=== PATIENT | male | born 1970 | race Caucasian/White ===

== ENCOUNTER 2016-11-07 16:05 | Inpatient (IN) | payer SELFPAY ==
[2016-11-07] VITALS (9 sets, daily range): BP systolic 126–202; BP diastolic 75–118; PULSE 66–120; RESP 16–22; TEMP 98.5; O2SAT 95–100
[~2016-11-07] VITALS: Ht 167.6 cm; Wt 79.4 kg
[~2016-11-07 16:05] MED LIST: CYCL-36 PO; IBUP-232 PO; LISI-357 PO
[2016-11-07] MEDS ORDERED: LISI-519 PO (16:10)
[2016-11-07] MEDS ORDERED: hydrALAZINE HCL 20 MG/ML VIAL IV PUSH ONE (16:30)
[2016-11-07] MEDS ORDERED: SODIUM CHLOR 0.9% 1000 ML INJ 1,000 ML IV ONE (16:30)
[2016-11-07] MEDS ORDERED: ONDANSETRON HCL 4 MG/2 ML VIAL IV PUSH ONE (16:30)
--- NOTE | 2016-11-07 16:37 | PD ---
HPI Chief Complaint: Headache Time Seen by Provider: 16:20 Travel History International Travel<30 days: No Contact w/Intl Traveler<30days: No Traveled to known affect area: No History of Present Illness HPI 46yo M with PMH of HTN and migraine headaches presents to the ED with c/o daily headache since 10/27/16. Pt states he has been having migraine headache since he was 14 and usually resolves with exedrin. States he had a very bad migraine on 10/27/16 and after that, has been having daily headaches like his migraine. Pt states right now it is about 4 out of 10 on 10 pain scale. Pain is right sided, throbbing and associated with nausea, vomiting. Pt started feeling tingling on his left face when he woke up at 10am this morning. States he has had this before once but usually do not have this associated with his usual migraines. Pt states he has elevated blood pressure but has not been able to take his lisinopril for at least 4 days because of the vomiting. Denies any fever, cough, chest pain, sob, abdominal pain, focal weakness or numbness in extremities. PFSH Past Medical History Hx Anticoagulant Therapy: No Bipolar Disorder: Yes Cardiovascular Problems: Yes (HTN) COPD: Yes Diminished Hearing: No Hypertension: Yes Musculoskeletal: Yes (CHRONIC LOWER BACK PAIN) Psychiatric: Yes Migraines: Yes Influenza Vaccination: No Past Surgical History Appendectomy: Yes Social History Alcohol Use: No (former "alcoholic") Tobacco Use: Yes (1.5ppd) Substance Use: No (DENIES) Allergies-Medications (Allergen,Severity, Reaction): Coded Allergies: Prednisone (Verified Allergy, Severe, Swelling, 11/07/16) Vioxx (Verified Allergy, Severe, edema, 11/07/16) Codeine (Verified Allergy, Mild, FACE SWELLS, 11/07/16) Reported Meds & Prescriptions Reported Meds & Active Scripts Active Reported Lisinopril 5 Mg Tab 5 Mg PO DAILY Review of Systems Except as stated in HPI: all other systems reviewed are Neg Physical Exam Narrative GENERAL: 46yo M in mild distress. SKIN: Warm and dry. HEAD: Atraumatic. Normocephalic. EYES: Pupils equal and round at 4mm bilaterally. EOMI. No scleral icterus. No injection or drainage. ENT: Throat: Clear. TM wnl bilaterally. NECK: Trachea midline. No JVD. No nuchal rigidity. CARDIOVASCULAR: Regular rate and rhythm. No murmur appreciated. RESPIRATORY: No accessory muscle use. Clear to auscultation. Breath sounds equal bilaterally. GASTROINTESTINAL: Abdomen soft, non-tender, nondistended. No rebound tenderness or guarding. MUSCULOSKELETAL: No obvious deformities. No clubbing. No cyanosis. No edema. NEUROLOGICAL: Awake and alert. Decreased sensation in left V2, V3. NIH Stroke scale 1. Muscle strength 5/5 in all extremities. Sensation intact in all extremities. PSYCHIATRIC: Appropriate mood and affect; insight and judgment normal. Data Data Last Documented VS Vital Signs Date Time Temp Pulse Resp B/P Pulse Ox O2 Delivery O2 Flow Rate FiO2 11/07/16 18:53 120 22 126/89 98 11/07/16 16:[address] Brain W/O Iv Contrast(Rout) (11/07/16 ) Hydralazine Inj (Apresoline Inj) (11/07/16 16:30) Complete Blood Count With Diff (11/07/16 16:29) Basic Metabolic Panel (Bmp) (11/07/16 16:29) Prothrombin Time / Inr (Pt) (11/07/16 16:29) Act Partial Throm Time (Ptt) (11/07/16 16:29) Ondansetron Inj (Zofran Inj) (11/07/16 16:30) Sodium Chlor 0.9% 1000 Ml Inj (Ns 1000 M (11/07/16 16:30) Morphine Inj (Morphine Inj) (11/07/16 18:45) Aspirin (Aspirin) (11/07/16 18:45) Consult Neurology (11/07/16 ) Admit Order (Ed Use Only) (11/07/16 19:05) Labs Laboratory Tests Test 11/07/16 16:45 White Blood Count 6.6 TH/MM3 Red Blood Count 3.91 MIL/MM3 Hemoglobin 13.5 GM/DL Hematocrit 39.6 % Mean Corpuscular Volume 101.3 FL Mean Corpuscular Hemoglobin 34.6 PG Mean Corpuscular Hemoglobin 34.2 % Concent Red Cell Distribution Width 12.6 % Platelet Count 380 TH/MM3 Mean Platelet Volume 7.5 FL Neutrophils (%) (Auto) 70.3 % Lymphocytes (%) (Auto) 22.4 % Monocytes (%) (Auto) 5.8 % Eosinophils (%) (Auto) 0.9 % Basophils (%) (Auto) 0.6 % Neutrophils # (Auto) 4.6 TH/MM3 Lymphocytes # (Auto) 1.5 TH/MM3 Monocytes # (Auto) 0.4 TH/MM3 Eosinophils # (Auto) 0.1 TH/MM3 Basophils # (Auto) 0.0 TH/MM3 CBC Comment DIFF FINAL Differential Comment Prothrombin Time 10.0 SEC Prothromb Time International 0.9 RATIO Ratio Activated Partial 25.7 SEC Thromboplast Time Sodium Level 142 MEQ/L Potassium Level 3.9 MEQ/L Chloride Level 105 MEQ/L Carbon Dioxide Level 28.8 MEQ/L Anion Gap 8 MEQ/L Blood Urea Nitrogen 14 MG/DL Creatinine 0.82 MG/DL Estimat Glomerular Filtration 102 ML/MIN Rate Random Glucose 107 MG/DL Hemoglobin A1c 5.4 % Calcium Level 8.5 MG/DL MDM Medical Decision Making Medical Screen Exam Complete: Yes Emergency Medical Condition: Yes Interpretation(s) Laboratory Tests Test 11/07/16 16:45 White Blood Count 6.6 TH/MM3 (4.0-11.0) Red Blood Count 3.91 MIL/MM3 (4.50-5.90) Hemoglobin 13.5 GM/DL (13.0-17.0) Hematocrit 39.6 % (39.0-51.0) Mean Corpuscular Volume 101.3 FL (80.0-100.0) Mean Corpuscular Hemoglobin 34.6 PG (27.0-34.0) Mean Corpuscular Hemoglobin 34.2 % Concent (32.0-36.0) Red Cell Distribution Width 12.6 % (11.6-17.2) Platelet Count 380 TH/MM3 (150-450) Mean Platelet Volume 7.5 FL (7.0-11.0) Neutrophils (%) (Auto) 70.3 % (16.0-70.0) Lymphocytes (%) (Auto) 22.4 % (9.0-44.0) Monocytes (%) (Auto) 5.8 % (0.0-8.0) Eosinophils (%) (Auto) 0.9 % (0.0-4.0) Basophils (%) (Auto) 0.6 % (0.0-2.0) Neutrophils # (Auto) 4.6 TH/MM3 (1.8-7.7) Lymphocytes # (Auto) 1.5 TH/MM3 (1.0-4.8) Monocytes # (Auto) 0.4 TH/MM3 (0-0.9) Eosinophils # (Auto) 0.1 TH/MM3 (0-0.4) Basophils # (Auto) 0.0 TH/MM3 (0-0.2) CBC Comment DIFF FINAL Differential Comment Prothrombin Time 10.0 SEC (9.8-11.6) Prothromb Time International 0.9 RATIO Ratio Activated Partial 25.7 SEC Thromboplast Time (24.3-30.1) Sodium Level 142 MEQ/L (136-145) Potassium Level 3.9 MEQ/L (3.5-5.1) Chloride Level 105 MEQ/L (98-107) Carbon Dioxide Level 28.8 MEQ/L (21.0-32.0) Anion Gap 8 MEQ/L (5-15) Blood Urea Nitrogen 14 MG/DL (7-18) Creatinine 0.82 MG/DL (0.60-1.30) Estimat Glomerular Filtration 102 ML/MIN Rate (>89) Random Glucose 107 MG/DL (74-106) Calcium Level 8.5 MG/DL (8.5-10.1) Last Impressions Head CT 11/07/16 0000 Signed Impressions: Service Date/Time: Monday, November 07, 2016 16:39 - CONCLUSION: Small probably evolving right basal ganglia lacunar infarct. Bassem Gustafson MD Differential Diagnosis Migraine headache vs. hypertensive emergency vs. CVA Narrative Course 46yo M with PMH of migraine headache here with right sided headache. Feels like his migraine and associated with NBNB vomiting. However, he started having left facial tingling when he woke up at 10am today. States he has had this once before with his headache but usually do not have this with his headache. BP is 202/118 and pt states he has not been taking his lisinopril because of the vomiting. Pt given hydralazine 10mg IV and BP is now 186/101. Labs reviewed, no leukocytosis. BMP unremarkable. CT brain showed a small probably evolving right basal ganglia lacunar infarct. Pt given aspirin 325mg PO. Pt also given morphine for pain. States it resolved his headache for a bit but now it is coming back. Pt to be admitted for CVA work up. Discussed with Dr. Pike and accepted to her service. Neuro consult placed. Diagnosis Primary Impression: CVA (cerebral vascular accident) Qualified Code: I63.9 - Cerebrovascular accident (CVA), unspecified mechanism Admitting Information Admitting Physician Requests: Observation Rose Fried DO Nov 07, 2016 16:37
--- NOTE | 2016-11-07 16:55 | RADHPO ---
EXAM DATE/TIME: 11/07/2016 16:39 [facility] COMPARISON: No previous studies available for comparison. INDICATIONS : Cephalgia with nausea and vomiting. RADIATION DOSE: 67.49 CTDIvol (mGy) MEDICAL HISTORY : Hypertension. SURGICAL HISTORY : None. ENCOUNTER: Initial ACUITY: 1 day PAIN SCALE: 5/10 LOCATION: cranial TECHNIQUE: Multiple contiguous axial images were obtained of the head. Using automated exposure control and adj ustment of the mA and/or kV according to patient size, radiation dose was kept as low as reasonably a chievable to obtain optimal diagnostic quality images. FINDINGS: There is a small area of diminished density in the right lentiform nucleus which is likely an evolvin g lacunar infarct. The brain is also poor symmetric and normal. There is no evidence of mass or hemor rhage. The extracranial structures are benign and intact. CONCLUSION: Small probably evolving right basal ganglia lacunar infarct. Bassem Gustafson MD on November 07, 2016 at 16:51 Board Certified Radiologist. This report was verified electronically.
[2016-11-07 16:58] LABS: AUTOMATED NEUTROPHIL # 4.6 TH/MM3 (1.8-7.7); BASOPHIL % 0.6 % (0.0-2.0); EOSINOPHIL # 0.1 TH/MM3 (0-0.4); EOSINOPHIL % 0.9 % (0.0-4.0); HEMATOCRIT 39.6 % (39.0-51.0); HEMO FLAGS DIFF FINAL; LYMPH % 22.4 % (9.0-44.0); LYMPHOCYTE # 1.5 TH/MM3 (1.0-4.8); MEAN CELL VOLUME 101.3 FL (80.0-100.0); MEAN CORPUSCULAR HEMOGLOBIN 34.6 PG (27.0-34.0); MEAN CORPUSCULAR HGB CONC 34.2 % (32.0-36.0); MONO % 5.8 % (0.0-8.0); NEUT % 70.3 % (16.0-70.0); PLATELET COUNT 380 TH/MM3 (150-450); RED BLOOD COUNT 3.91 MIL/MM3 (4.50-5.90); RED CELL DISTRIBUTION WIDTH 12.6 % (11.6-17.2); WHITE BLOOD COUNT 6.6 TH/MM3 (4.0-11.0)
[2016-11-07 17:05] LABS: POTASSIUM 3.9 MEQ/L (3.5-5.1)
[2016-11-07 17:08] LABS: BICARBONATE 28.8 MEQ/L (21.0-32.0)
[2016-11-07 17:09] LABS: APTT (PATIENT) 25.7 SEC (24.3-30.1); INTERNATIONAL NORMALIZED RATIO 0.9 RATIO
[2016-11-07] MEDS ORDERED: MORPHINE SULFATE 4 MG/ML INJ IV PUSH ONE ×2 (18:45→20:30)
[2016-11-07] MEDS ORDERED: ASPIRIN 325 MG TAB PO ONE (18:45)
[2016-11-07] MEDS ORDERED: SODIUM CHLORIDE 0.9% FLUSH 10 ML FLUSH IV FLUSH PRN (19:45)
[2016-11-07] MEDS ORDERED: MORPHINE SULFATE 4 MG/ML INJ IV PUSH PRN (20:45)
[2016-11-07] MEDS: SODIUM CHLORIDE 0.9% FLUSH 10 ML FLUSH IV FLUSH SCH (21:00)
[2016-11-07 22:12] LABS: HEMOGLOBIN A1a 1.3 %; HEMOGLOBIN A1b 0.8 %; HEMOGLOBIN Ao 85.2 %; HEMOGLOBIN F 0.9 %; HEMOGLOBIN LA1C 2.1 %
[2016-11-08] VITALS (13 sets, daily range): BP systolic 160–188; BP diastolic 77–100; PULSE 58–86; RESP 15–20; TEMP 96.5–98.1; O2SAT 94–99
[2016-11-08] MEDS ORDERED: MORPHINE SULFATE 4 MG/ML INJ IV PUSH PRN ×3 (00:43→10:15)
[2016-11-08] MEDS ORDERED: MORPHINE SULFATE 4 MG/ML INJ IV PUSH ONE (00:45)
[2016-11-08] MEDS: ONDANSETRON HCL 4 MG/2 ML VIAL IV PUSH PRN ×2 (00:54→11:16)
[2016-11-08] MEDS ORDERED: SODIUM CHLORIDE 0.9% FLUSH 10 ML FLUSH IVF PRN (08:15)
[2016-11-08] MEDS ORDERED: ENALAPRILAT 1.25 MG/ML VIAL IV PRN (08:15)
[2016-11-08] MEDS ORDERED: LABETALOL HCL 100 MG/20 ML VIAL IV PRN (08:15)
[2016-11-08] MEDS: SODIUM CHLORIDE 0.9% FLUSH 10 ML FLUSH IV FLUSH SCH ×2 (09:00→21:32)
[2016-11-08 09:50] LABS: HDL CHOLESTEROL 40.9 MG/DL (40.0-60.0)
--- NOTE | 2016-11-08 10:10 | HHI.HP ---
HPI Service [facility] Hospitalists Primary Care Physician No Primary Care Physician Admission Diagnosis CVA Diagnoses: Chief Complaint: Severe headache Blurry vision Tingling left side of face Travel History International Travel<30 Days: No Contact w/Intl Traveler <30 Da: No Traveled to Known Affected Are: No History of Present Illness This is a 46-year-old male with past medical history significant for hypertension, COPD, chronic bronchitis, depression, bipolar disorder and history of alcohol abuse who presents to [facility] complaints of severe headache ongoing since 10/27/16 and tingling left side of his face 1 day. Patient has a long history of migraines beginning at the age of 14. As a result of the migraine, patient started experiencing nausea and vomiting and has been unable to take his Lisinopril medication. As a result his blood pressure has been uncontrolled. He denies any recent illness. He denies any fever or chills but did say he had a brief episode of "clamminess" over history on but this is since resolved. He does report some associated blurry vision and states he's unable to focus. He denies any complaints of dizziness or lightheadedness. He denies any chest pain, shortness of breath, abdominal pain , numbness or tingling or focal weakness. He continues to have a headache 6 out of 10 on the pain scale. He smokes a pack to pack and half cigarettes a day. He has a previous history of alcohol abuse but has been sober since March of last year. In the ED, patient's CT revealed a small probably evolving right basal ganglia lacunar infarct. Patient will be admitted at this time. Review of Systems Constitutional: DENIES: Fever, Dizziness Endocrine: DENIES: Polyuria, Polyphagia 10 point review of systems completed and all pertinent negative except as stated in history of present illness Past Family Social History Past Medical History Migraines since the age of 14 COPD Chronic bronchitis Hypertension Bipolar disorder Depression Chronic low back pain Past Surgical History Appendectomy Reported Medications Lisinopril 5 Mg Tab 5 Mg PO DAILY Allergies: Coded Allergies: Prednisone (Verified Allergy, Severe, Swelling, 11/07/16) Vioxx (Verified Allergy, Severe, edema, 11/07/16) Codeine (Verified Allergy, Mild, FACE SWELLS, 11/07/16) Active Ordered Medications Current Medications Medications (Trade) Dose Ordered Sig/Leslee Route Start Time Stop Time Status Last Admin (NS Flush) 2 ml BID IV FLUSH 11/07/16 21:00 11/07/16 21:00 (NS Flush) 2 ml UNSCH PRN IV FLUSH 11/07/16 19:45 (Lovenox Inj) 40 mg Q24H SQ 11/08/16 09:00 (Zofran Inj) 4 mg Q6H PRN IV PUSH 11/08/16 00:45 11/08/16 00:54 (Morphine Inj) 2 mg Q4HR PRN IV PUSH 11/08/16 06:15 11/08/16 07:54 (NS Flush) 2 ml UNSCH PRN IVF 11/08/16 08:15 (Vasotec Inj) 1.25 mg Q4H PRN IV 11/08/16 08:15 (Trandate Inj) 10 mg Q2H PRN IV 11/08/16 08:15 (Lipitor) 10 mg HS PO 11/08/16 21:00 (Aspirin) 325 mg DAILY PO 11/08/16 09:00 Family History Mother, hypertension Migraine Social History Patient is a smoker and reports smoking a 1 - 1 1/2 packs per day. He is recovering alcoholic and is not had a drink since March 2016. He denies any illicit drug use. 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 Physical Exam Vital Signs Vital Signs Date Time Temp Pulse Resp B/P Pulse Ox O2 Delivery O2 Flow Rate FiO2 11/08/16 08:50 65 16 161/82 97 Room Air 11/08/16 08:08 16 11/08/16 07:53 16 11/08/16 07:30 79 16 99 Room Air 21 11/08/16 07:30 98.1 79 16 188/96 99 Room Air 11/08/16 05:07 86 20 188/100 98 11/08/16 03:00 58 20 184/93 98 11/08/16 01:49 58 20 179/84 97 11/08/16 01:11 98 21 11/08/16 00:17 70 20 160/77 98 11/07/16 22:19 66 20 165/86 96 11/07/16 21:02 79 20 153/75 95 11/07/16 20:22 69 20 169/94 96 11/07/16 19:52 76 20 190/98 96 11/07/16 19:52 78 20 97 11/07/16 19:15 20 11/07/16 18:53 120 22 126/89 98 11/07/16 18:02 82 20 186/101 98 11/07/16 17:15 78 20 190/90 98 11/07/16 16:58 73 20 201/103 99 11/07/16 16:08 98.5 93 16 202/118 100 Physical Exam GENERAL: This is a well-nourished, well-developed patient, in no apparent distress. A&Ox3. Pleasant and cooperative. SKIN: No rashes, ecchymoses or lesions. Warm and dry. HEAD: Atraumatic. Normocephalic. No temporal or scalp tenderness. EYES: Pupils equal round and reactive. Extraocular motions intact. No scleral icterus. No injection or drainage. ENT: Nose without bleeding, purulent drainage or septal hematoma. Throat without erythema, tonsillar hypertrophy or exudate. Uvula midline. Airway patent. NECK: Trachea midline. No JVD or lymphadenopathy. Supple, nontender, no meningeal signs. CARDIOVASCULAR: Regular rate and rhythm without murmurs, gallops, or rubs. RESPIRATORY: Clear to auscultation. Breath sounds equal bilaterally. No wheezes , rales, or rhonchi. GASTROINTESTINAL: Abdomen soft, non-tender, nondistended. No hepato-splenomegaly , or palpable masses. No guarding. MUSCULOSKELETAL: Extremities without clubbing, cyanosis, or edema. No joint tenderness, effusion, or edema noted. No calf tenderness. Negative Homans sign bilaterally. NEUROLOGICAL: Awake and alert. Face is symmetrical and no evidence of droop. Cranial nerves II through XII intact except for some subjective numbness noted on the left-sided face. Motor and sensory grossly within normal limits. Five out of 5 muscle strength in all muscle groups. Normal speech. Laboratory Laboratory Tests Test 11/07/16 11/08/16 16:45 06:05 White Blood Count 6.6 Red Blood Count 3.91 Hemoglobin 13.5 Hematocrit 39.6 Mean Corpuscular Volume 101.3 Mean Corpuscular Hemoglobin 34.6 Mean Corpuscular Hemoglobin 34.2 Concent Red Cell Distribution Width 12.6 Platelet Count 380 Mean Platelet Volume 7.5 Neutrophils (%) (Auto) 70.3 Lymphocytes (%) (Auto) 22.4 Monocytes (%) (Auto) 5.8 Eosinophils (%) (Auto) 0.9 Basophils (%) (Auto) 0.6 Neutrophils # (Auto) 4.6 Lymphocytes # (Auto) 1.5 Monocytes # (Auto) 0.4 Eosinophils # (Auto) 0.1 Basophils # (Auto) 0.0 CBC Comment DIFF FINAL Differential Comment Prothrombin Time 10.0 Prothromb Time International 0.9 Ratio Activated Partial 25.7 Thromboplast Time Sodium Level 142 Potassium Level 3.9 Chloride Level 105 Carbon Dioxide Level 28.8 Anion Gap 8 Blood Urea Nitrogen 14 Creatinine 0.82 Estimat Glomerular Filtration 102 Rate Random Glucose 107 Hemoglobin A1c 5.4 Calcium Level 8.5 Triglycerides Level 241 Cholesterol Level 181 LDL Cholesterol 92 HDL Cholesterol 40.9 Cholesterol/HDL Ratio 4.42 Thyroid Stimulating Hormone 1.190 3rd Gen Result Diagram: 11/07/16 1645 11/07/16 1645 Imaging Last [address] 11/07/16 0000 Signed Impressions: Service Date/Time: Monday, November 07, 2016 16:39 - CONCLUSION: Small probably evolving right basal ganglia lacunar infarct. Bassem Gustafson MD Assessment and Plan Assessment and Plan 46-year-old male with past medical history significant for hypertension, COPD, chronic bronchitis, depression, bipolar disorder and history of alcohol abuse who presents to [facility] complaints of severe headache ongoing since 10/27 and tingling left side of his face 1 day. CVA in patient with hypertensive urgency at admission with a BP of 202/118 unable take his hypertensive medication 3 days due to N/V and a history of ongoing tobacco use - Admit to inpatient - Consult neurology - MRI and MRA of the head - Echocardiogram - Carotid Doppler studies - Atorvastatin and aspirin daily - Obtain TSH level, lipid panel and A1c - PT/OT/ST to include swallow evaluation - Allow permissive hypertension - Labetalol with parameters - Discussed importance of smoking cessation. Nicotine patch offered but declined due to poor tolerance in the past. - Monitor for arrhythmia with telemetry - Neurochecks Hypertension with hypertensive urgency at presentation - As above, allow permissive hypertension - Labetalol with parameters BP >220/120 - Monitor BP Migraine - Patient has a lengthy history as migraine sufferer since age 14 - Still complaining of severe headache - Increased dose of morphine and monitor response COPD/chronic bronchitis with ongoing tobacco use - Smoking cessation advised - DuoNeb nebs when necessary DVT prophylaxis - Lovenox subcutaneous Written by Shira Rousseau, acting as scribe for Dr. Fry on 11/08/16 at 10 :07. All or portions of this note were transcribed by rosalba Rousseau PA-C. I, Dr. Vladislav Fry personally performed the history, physical exam, and medical decision making; and confirmed the accuracy of the information in the transcribed note. Authenticated by Dr. Vladislav Fry on 11/08/16 at 16:35. Physician Certification 2 Midnight Certification Type: Admission for Inpatient Services Order for Inpatient Services The services are ordered in accordance with Medicare regulations or non- Medicare payer requirements, as applicable. In the case of services not specified as inpatient-only, they are appropriately provided as inpatient services in accordance with the 2-midnight benchmark. Estimated LOS (days): 2 days is the estimated time the patient will need to remain in the hospital, assuming treatment plan goals are met and no additional complications. Post-Hospital Plan: Home Shira Rousseau Nov 08, 2016 10:10 Vladislav Fry MD Nov 08, 2016 16:35
[2016-11-08] MEDS: ASPIRIN 325 MG TAB PO SCH (10:30)
[2016-11-08] MEDS: ENOXAPARIN SODIUM 40 MG/0.4 ML SYRINGE SQ SCH (10:31)
--- NOTE | 2016-11-08 10:47 | RADHPO ---
EXAM DATE/TIME: 11/08/2016 09:24 [facility] COMPARISON: No previous studies available for comparison. INDICATIONS : Headache. Cerebrovascular accident. Left facial tingling. MEDICAL HISTORY : Hypertension. Chronic obstructive pulmonary disease. Bipolar. SURGICAL HISTORY : Appendectomy. ENCOUNTER: Initial ACUITY: 2 weeks PAIN SCORE: 8/10 LOCATION: Bilateral neck PEAK SYSTOLIC VELOCITIES (cm/sec): ICA/CCA RATIO: Right: 0.7 Left: 0.8 ICA: Right: 83 Left: 113 CCA: Right: 111 Left: 141 ECA: Right: 74 Left: 100 VERTEBRAL: Right: 70 antegrade Left: 68 antegrade Elevated flow velocities and ICA/CCA ratios have been found to correlate with increased degrees of vessel stenosis, calculated as percentage of diameter relative to a normal segment of distal ICA/CCA FINDINGS: RIGHT CAROTID: No significant stenosis is visualized. The waveforms are within normal limits. LEFT CAROTID: No significant stenosis is visualized. The waveforms are within normal limits. VERTEBRAL ARTERIES: Antegrade flow is seen in both vertebral arteries. MISCELLANEOUS: None. CONCLUSION: Negative exam. Christiano Coker MD on November 08, 2016 at 10:43 Board Certified Radiologist. This report was verified electronically.
[2016-11-08] MEDS ORDERED: NALOXONE HCL 0.4 MG/ML AMP IV PRN (11:30)
[2016-11-08] MEDS: HYDROmorphone HCL PF 1 MG/ML VIAL IV PRN ×2 (14:11→21:33)
--- NOTE | 2016-11-08 15:17 | RADHPO ---
EXAM DATE/TIME: 11/08/2016 14:20 [facility] COMPARISON: No previous studies available for comparison. INDICATIONS : Stroke. MEDICAL HISTORY : Hypertension. SURGICAL HISTORY : Appendectomy. ENCOUNTER: Subsequent ACUITY: 2 day PAIN SCORE: 5/10 LOCATION: cranial TECHNIQUE: Multiplanar, multisequence MRI of the brain was performed without contrast. FINDINGS: CEREBRUM: The ventricles are normal for age. No evidence of midline shift, mass lesion, hemorrha ge or acute infarction. There is a focal signal abnormality within the right putamen/anterior limb o f the right internal capsule consistent with possible old lacunar infarct. No extraaxial fluid collec tions are seen. The pituitary gland and suprasellar cistern are normal in configuration. WHITE MATTER: Minimal scattered periventricular white matter signal abnormalities are noted consi stent with minimal demyelination or small vessel ischemic disease. POSTERIOR FOSSA: The cerebellum and brainstem are intact. The 4th ventricle is midline. The cere bellopontine angle is unremarkable. The cerebellar tonsils are normal in position. DIFFUSION IMAGING: No focal areas of restricted diffusion are seen. No evidence of acute infarct ion. EXTRACRANIAL: The visualized portions of the orbits and paranasal sinuses are unremarkable. CONCLUSION: 1. Minimal scattered periventricular white matter signal abnormalities consistent with minimal demyel ination or small vessel ischemic disease. 2. Focal signal abnormality within the right putamen/anterior limb of the right internal capsule cons istent with possible old lacunar infarct. 3. No acute infarct, hemorrhage, mass effect or extra-axial fluid collections. Heladio Peña MD on November 08, 2016 at 15:12 Board Certified Radiologist. This report was verified electronically.
--- NOTE | 2016-11-08 15:55 | RADHPO ---
EXAM DATE/TIME: 11/08/2016 14:20 [facility] COMPARISON: No previous studies available for comparison. INDICATIONS : Stroke. MEDICAL HISTORY : Hypertension. SURGICAL HISTORY : Appendectomy. Left leg. ENCOUNTER: Subsequent ACUITY: 2 day PAIN SCORE: 5/10 LOCATION: cranial Please note a normal MRA of the brain does not entirely exclude the possibility of a small aneurysm, nor the possibility of distal intracranial vessel disease. TECHNIQUE: 3D time of flight MRA was performed. Source images, multiplanar STS MIP, and 3D volume MIP reconstru ctions were reviewed. FINDINGS: There is excellent visualization of the major intracranial arteries out to the second-order branch ve ssels. There is no evidence for aneurysm, vessel truncation or stenosis, and no evidence for vascula r malformation. Patent posterior communicating arteries are noted bilaterally. CONCLUSION: No significant stenosis, occlusion or aneurysm formation. Patent bilateral posterior communicating arteries. Heladio Peña MD on November 08, 2016 at 15:52 Board Certified Radiologist. This report was verified electronically.
--- NOTE | 2016-11-08 19:01 | EC ---
Study Study Date:11/08/2016 STUDY CONCLUSIONS SUMMARY LEFT VENTRICLE: The cavity size was normal. Wall thickness was increased in a pattern of mild LVH. There was concentric hypertrophy. Systolic function was normal. The estimated ejection fraction was in the range of 60% to 65%. Wall motion was normal; there were no regional wall motion abnormalities. Doppler parameters are consistent with abnormal left ventricular relaxation (grade 1 diastolic dysfunction). If LV function is below 40, please consider prescribing an ACEI or ARB or document rationale for non-use. PROCEDURE DATA STUDY STATUS: Elective. Procedure: Transthoracic echocardiography. Image quality was good. Scanning was performed from the parasternal, apical, and subcostal acoustic windows. Study completion: The patient tolerated the procedure well. Transthoracic echocardiography. M-mode, complete 2D, complete spectral Doppler, and color Doppler. Height: Height: 66in. Weight: Weight: 174.6lb. Body mass index: BMI: 28.2kg/m^2. Body surface area: BSA: 1.89m^2. Patient status: Inpatient. CARDIAC ANATOMY LEFT VENTRICLE: The cavity size was normal. Wall thickness was increased in a pattern of mild LVH. There was concentric hypertrophy. Systolic function was normal. The estimated ejection fraction was in the range of 60% to 65%. Wall motion was normal; there were no regional wall motion abnormalities. Doppler parameters are consistent with abnormal left ventricular relaxation (grade 1 diastolic dysfunction). AORTIC VALVE: The valve appears to be grossly normal. Bjaflet. Doppler: There was no stenosis. No significant regurgitation. Valve area: 2.26cm^2(VTI). Indexed valve area: 1.2cm^2/m^2 (VTI). Valve area: 2.04cm^2 (Vmax). Indexed valve area: 1.08cm^2/m^2 (Vmax). Mean gradient: 5mm Hg (S). MITRAL VALVE: The valve appears to be grossly normal. Doppler: There was no evidence for stenosis. Trace regurgitation. LEFT ATRIUM: The atrium was normal in size. ATRIAL SEPTUM: No PFO/ASD noted. RIGHT VENTRICLE: The cavity size was normal. Systolic function was normal. PULMONIC VALVE: Not well visualized. Doppler: There was no evidence for stenosis. Trace regurgitation. TRICUSPID VALVE: The valve appears to be grossly normal. Doppler: There was no evidence for stenosis. Trace regurgitation. PERICARDIUM: There was no pericardial effusion. Patient weight: 174.6lb _Ejection fraction:_ 65-75% _Fractional shortening:_ 32% up to 5Kg 5-11.5Kg 11.6-22.9Kg 23-45Kg 45-57Kg Aortic Root 7-13 <17 13-22 17-27 17-27 LA diam 6-13 <23 24-38 33-47 37-40 RVID 10-17 7-15 7-15 7-18 8-17 LVIDd 12-22 <32 24-38 33-47 37-40 LVPW 2-4 3-6 5-7 6-8 7-8 IVS 2-4 3-6 5-7 6-8 7-8 BASIC MEASUREMENTS ADULT NORMAL Left ventricle LV internal dimension, ED, chordal *53.1 mm 43-52 level, PLAX LV internal dimension, ES, chordal 33.5 mm 23-38 level, PLAX Fractional shortening, chordal level, 37 % >29 PLAX LV posterior wall thickness, ED 11.6 mm IVS/LVPW ratio, ED 1 <1.3 Ventricular septum Septal thickness, ED 11.6 mm Aortic valve Leaflet separation 19 mm 15-26 Aorta Root diameter, ED 29 mm Left atrium Anterior-posterior dimension 28 mm Anterior-posterior dimension index 1.48 cm/m^2 <2.2 BASIC MEASUREMENTS ADULT NORMAL Aortic valve Leaflet separation 19 mm 15-26 DOPPLER MEASUREMENTS ADULT NORMAL Main pulmonary artery Pressure, S 22 mm Hg =30 Aortic valve Peak velocity, S 154 cm/s Mean velocity, S 106 cm/s VTI, S 27.8 cm Mean gradient, S 5 mm Hg Valve area, VTI 2.26 cm^2 Valve area index, VTI 1.2 cm^2/m^2 Valve area, Vmax 2.04 cm^2 Valve area index, Vmax 1.08 cm^2/m^2 Mitral valve Peak E-wave velocity 68.1 cm/s Peak A-wave velocity 87.4 cm/s Deceleration time *275 ms 150-230 Peak E/A ratio 0.8 Tricuspid valve Regurgitant peak velocity 220 cm/s Peak RV-RA gradient, S 19 mm Hg Maximal regurgitant velocity 220 cm/s Systemic veins Estimated CVP 5 mm Hg Right ventricle RV pressure, S 24 mm Hg <30 Pulmonic valve Peak velocity, S 61.7 cm/s LEGEND: Mean values are shown as u=mean value. Asterisk (*) sandhu values outside specified normal range. Prepared and signed by Julio Fernandez [id number]
[2016-11-08] MEDS ORDERED: ATORVASTATIN 10 MG TAB PO SCH (21:00)
[2016-11-09] VITALS: BP 169/95; PULSE 72; RESP 18; TEMP 98.6; O2SAT 97
[2016-11-09] MEDS: HYDROmorphone HCL PF 1 MG/ML VIAL IV PRN ×2 (00:46→09:05)
[2016-11-09 04:00] VITALS: BP 177/93; PULSE 70; RESP 18; TEMP 97.5; O2SAT 96
[2016-11-09 08:00] VITALS: BP 168/95; PULSE 87; RESP 16; TEMP 97.3; O2SAT 95
[2016-11-09 08:06] LABS: POTASSIUM 3.8 MEQ/L (3.5-5.1)
[2016-11-09 08:09] LABS: BICARBONATE 29.5 MEQ/L (21.0-32.0)
[2016-11-09 08:43] LABS: CREATINE KINASE 44 U/L (39-308)
[2016-11-09] MEDS: SODIUM CHLORIDE 0.9% FLUSH 10 ML FLUSH IV FLUSH SCH (09:00)
[2016-11-09] MEDS: ASPIRIN 325 MG TAB PO SCH (09:04)
[2016-11-09] MEDS: ENOXAPARIN SODIUM 40 MG/0.4 ML SYRINGE SQ SCH (09:04)
--- NOTE | 2016-11-09 10:32 | MB ---
cc: GUERO BEDOYA MD DATE OF CONSULTATION 11/09/2016 REASON FOR CONSULTATION Possible stroke HISTORY OF PRESENT ILLNESS Mr. Harrison is a 46-year-old male who presented to the [facility] because of severe headache and tingling of the last left side of the face. The patient has significant past medical history of hypertension, COPD, chronic bronchitis, depression, migraine as he states since she was 14 years-old and he is currently on Excedrin ziqb-huh-[id number] only. He has tried Elavil and Neurontin and it did not work for him. He does not follow up with neurology. He has a history of alcohol abuse and bipolar disorder and depression. The patient states that he felt the left side of the face tingling and this followed an episode of migraine that has been ongoing for almost 12 days. His blood pressure has recently been uncontrolled and he states that one of the triggers of his migraine is elevation of blood pressure. He does not know of many triggers to his migraine. He also states that he had blurred vision in both eyes. Denies double vision, slurred speech, weakness of an extremity, passing out or convulsive activity. Upon arrival to the ED, his blood pressure was elevated was 202/118 as he was not taking his antihypertensive medications/Lisinopril. An urgent head CT scan without contrast revealed small probably evolving right basal ganglia lacunar infarct. The patient states that he wakes up, "exhausted and he tends to wake up several times at night." He does snore, but he was not diagnosed with sleep apnea. REVIEW OF SYSTEMS A 12-point review of systems is negative except for what is stated in the HPI. PAST MEDICAL HISTORY 1. Migraine since age 14 2. COPD 3. Chronic bronchitis 4. Hypertension 5. Bipolar depression 6. Chronic low back pain PAST SURGICAL HISTORY Appendectomy MEDICATIONS 1. Lisinopril 2. Excedrin migraine ALLERGIES PREDNISONE, VIOXX AND CODEINE FAMILY HISTORY Mother with hypertension and migraine. SOCIAL HISTORY Smokes one to xjb-gtt-q-half pack a day. He is a recovering alcoholic. He has been dry since March 2016. Denies any illicit drug abuse. 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 EXAMINATION GENERAL: Awake, alert, good historian, not in acute distress. HEENT: Atraumatic, normocephalic. Intact hearing, intact vision. NECK: No signs of meningeal irritation. No carotid bruit. CARDIOVASCULAR: Regular rate and rhythm. RESPIRATORY: Clear to auscultation. No wheezes. MUSCULOSKELETAL: Without clubbing, cyanosis or edema. Full range of movement. NEUROLOGIC: Awake, alert, and oriented to time, person and place. No speech difficulty. No dysphagia. Intact speech content. Cranial nerves II-XII are grossly intact. Motor examination 5/5 bilateral symmetrical. No abnormal movements. Normal tone. Mnehpl-fz-tcny, oeks-jq-aoqj is intact bilateral and symmetrical. Sensation to light touch and temperature is intact bilateral and symmetrical. Reflexes 2+ bilateral and symmetrical. Plantar's are bilaterally downgoing. Qjajha-vv-amfh and miju-ns-kxdw is normal. DIAGNOSTICS IMAGING - Head CT scan small probably evolving right basal ganglia lacunar infarction. - A brain MRI revealed minimal scattered periventricular white matter signal abnormalities consistent with minimal demyelination or small vessel ischemia. Focal signs of abnormality with right predominant anterior limb of right internal capsule consistent with possible old infarct. No acute infarct, hemorrhage, mass effect or extra-axial fluid collection. - Carotid ultrasound is a negative exam. - Head MRA, no significant stenosis or occlusion or aneurysm formation, patent bilateral posterior communicating arteries. DIAGNOSTIC IMPRESSION 1. Migraine headache 2. Radiological evidence of remote chronic infarcts. 3. Depression 4. Hypertension uncontrolled 5. Bipolar disorder PLAN 1. The patient's examination is nonfocal. 2. Neurological investigation revealed remote changes in the brain MRI. 3. Follow up as outpatient for management of migraine. 4. Add aspirin 81 mg 5. Follow-up with PCP for control of hypertension. Thank you for the opportunity to participate in care of your patient. MD SHARI Lowry/SORAYA /9:19 AM /10:17 AM RINKU
[2016-11-09 10:54] VITALS: O2SAT 95
--- NOTE | 2016-11-09 11:34 | RADHPO ---
EXAM DATE/TIME: 11/09/2016 11:14 [facility] COMPARISON: No previous studies available for comparison. INDICATIONS : Chest pain MEDICAL HISTORY : Chronic bronchitis SURGICAL HISTORY : Cardiac catherization ENCOUNTER: Initial ACUITY: 1 day PAIN SCORE: 2/10 LOCATION: Right chest FINDINGS: PA and lateral views of the chest demonstrate the lungs to be symmetrically aerated without evidence of mass, infiltrate or effusion. The cardiomediastinal contours are unremarkable. Osseous structure s are intact. CONCLUSION: No acute cardiopulmonary process. Christiano Coker MD on November 09, 2016 at 11:32 Board Certified Radiologist. This report was verified electronically.
--- NOTE | 2016-11-09 11:50 | HHI.PR ---
Subjective Remarks Follow up headache. Patient reported chest pain this morning. States that it is substernal and occurs with taking deep breaths. Headache has improved significantly. Left-sided facial numbness has also improved. Denies numbness, tingling, or weakness of his extremities. Objective Vitals Vital Signs Date Time Temp Pulse Resp B/P Pulse Ox O2 Delivery O2 Flow Rate FiO2 11/09/16 10:54 95 21 11/09/16 08:00 97.3 87 16 168/95 95 11/09/16 04:00 97.5 70 18 177/93 96 11/09/16 01:17 18 11/09/16 00:00 98.6 72 18 169/95 97 11/08/16 20:00 97.5 83 18 171/83 97 11/08/16 20:00 65 11/08/16 19:39 96 21 11/08/16 17:55 96.5 67 18 175/89 96 11/08/16 17:10 94 21 11/08/16 14:39 97.5 73 15 167/97 97 I/O 11/08/16 11/08/16 11/08/16 11/09/16 11/09/16 11/09/16 07:00 15:00 23:00 07:00 15:00 23:00 Intake Total 480 ml Output Total 400 ml Balance 80 ml Intake Oral 480 ml Output Urine Total 400 ml # Voids 3 4 4 # Bowel Movements 0 Result Diagram: 11/07/16 1645 11/09/16 0743 Imaging Last Impressions Chest X-Ray 11/09/16 0000 Signed Impressions: Service Date/Time: Wednesday, November 09, 2016 11:14 - CONCLUSION: No acute cardiopulmonary process. Christiano Coker MD Head Magnetic Resonance Angiography 11/08/16 0000 Signed Impressions: Service Date/Time: October 14:20 - CONCLUSION: No significant stenosis, occlusion or aneurysm formation. Patent bilateral posterior communicating arteries. Heladio Peña MD Carotid Artery Ultrasound 11/08/16 0000 Signed Impressions: Service Date/Time: October 09:24 - CONCLUSION: Negative exam. Christiano Coker MD Brain MRI 11/08/16 0000 Signed Impressions: Service Date/Time: Thursday, November 08, 2016 14:20 - CONCLUSION: 1. Minimal scattered periventricular white matter signal abnormalities consistent with minimal demyelination or small vessel ischemic disease. 2. Focal signal abnormality within the right putamen/anterior limb of the right internal capsule consistent with possible old lacunar infarct. 3. No acute infarct, hemorrhage , mass effect or extra-axial fluid collections. Heladio Peña MD Head CT 11/07/16 0000 Signed Impressions: Service Date/Time: Monday, November 07, 2016 16:39 - CONCLUSION: Small probably evolving right basal ganglia lacunar infarct. Bassem Gustafson MD Objective Remarks General: No acute distress. Heart: Regular rate and rhythm. No murmur. Lungs: Clear to auscultation bilaterally. No wheezes, rales, or rhonchi. Breathing is nonlabored. Abdomen: Soft, nontender, nondistended. Extremities: No lower extremity edema. Psych: Alert and oriented. Urinary Catheter: No Vascular Central Line Catheter: No A/P Problem List: (1) Migraine headache ICD Code: G43.909 Status: Acute (2) Chest pain ICD Code: R07.9 Status: Acute (3) Hypertension ICD Code: I10 Status: Chronic Assessment and Plan 1. Migraine headache: Improved with pain medication. Patient has a long- standing history of migraine headaches, since age 14. 2. Facial numbness, questionable CVA: Appreciate neurology recommendations. MRI shows remote infarct. Continue the pressure control. Continue aspirin, statin. PT/OT/ST. Symptoms are improving. 3. Hypertension: Permissive hypertension allowed. Will restart lisinopril. 4. COPD, chronic bronchitis: Ongoing tobacco use. Counseled quit smoking. DuoNeb 's as needed. 5. DVT prophylaxis: Lovenox. Discharge Planning Discharge home in stable condition. Follow-up with neurology, PCP. Heart healthy diet. Activity as tolerated. Return to the hospital if symptoms worsen. Vladislav Fry MD Nov 09, 2016 11:50
[2016-11-09] MEDS ORDERED: ASPI81TA2 PO (11:53)
[2016-11-09] MEDS ORDERED: LIPI10TA PO (11:53)
--- NOTE | 2016-11-09 11:54 | HHI.DCPOC ---
Discharge Care Plan Diagnosis: (1) Migraine headache (2) Chest pain (3) Hypertension Goals to Promote Your Health * To prevent worsening of your condition and complications * To maintain your health at the optimal level Directions to Meet Your Goals Take your medications as prescribed Follow your dietary instruction Follow activity as directed Keep your appointments as scheduled Take your immunizations and boosters as scheduled If your symptoms worsen call your PCP, if no PCP go to Urgent Care Center or Emergency Room Smoking is Dangerous to Your Health. Avoid second hand smoke Call the 24-hour hour crisis hotline for domestic abuse at Vladislav Fry MD Nov 09, 2016 11:54
[2016-11-09 12:00] VITALS: BP 168/100; PULSE 66; RESP 16; TEMP 97.6; O2SAT 97
[2016-11-09] MEDS ORDERED: LISINOPRIL 5 MG TAB PO SCH (13:00)
--- NOTE | 2016-11-10 17:31 | EKG ---
Date Performed: 11/09/2016 Time Performed: 09:14:48 PTAGE: 46 years EKG: Sinus rhythm . LVH with repolarization abnormality Compared to previous tracing, QRS voltage has increased and ST changes are new from the old tracing Borderline ECG PREVIOUS TRACING : 03/27/2015 18.05 DOCTOR: Manolo Hutchins Interpretating Date/Time 11/10/2016 17:30:19
--- NOTE | 2016-11-12 18:33 | PD.CONS ---
Assessment and Plan Assessment Consult received per stroke order set. EMR reviewed. MRI negative for acute stroke. Neurology consult reviewed and indicates migraine. Consult deferred due to no acute stroke. Please reconsult as appropriate. Thank you. Lilli Abdullahi MD Nov 12, 2016 18:33
== END 2016-11-09 13:21 | disposition home or self-care (01) | DRG 66 ==
LOC: PHED 16:05 → PHEDA 19:06 → OBSVTOIN 19:42 → PHEDH 23:42 → PH3A 11-08 08:57
PROVIDERS: ADMIT Family Medicine; ATTEND Family Medicine
DX: I63.9 Cerebral infarction, unspecified (principal); I10 Essential (primary) hypertension; I16.0 Hypertensive urgency; J44.9 Chronic obstructive pulmonary disease, unspecified; G43.909 Migraine, unspecified, not intractable, without status migrainosus; F10.21 Alcohol dependence, in remission; F17.210 Nicotine dependence, cigarettes, uncomplicated; F31.9 Bipolar disorder, unspecified; Z79.82 Long term (current) use of aspirin
CPT/HCPCS: 70450; 70544; 70551; 71020; 80048; 80061; 82550; 82948; 83036; 84443; 84484; 85025; 85610; 85730; 93005; 93306; 93880; 96361; 96374; 96375; J0360; J1170; J1650; J2270; J2405; J7030

== ENCOUNTER 2017-01-11 15:18 | Emergency (ER) | payer SELFPAY ==
[~2017-01-11] VITALS: Ht 167.6 cm; Wt 75.2 kg
[~2017-01-11 15:18] MED LIST changes: +ASPI81TA2 PO; -CYCL-36 PO; -IBUP-232 PO; +LIPI10TA PO; -LISI-357 PO; +LISI-519 PO
[2017-01-11 15:23] VITALS: BP 201/128; PULSE 116; RESP 16; TEMP 98.3; O2SAT 99
[2017-01-11] MEDS ORDERED: SODIUM CHLOR 0.9% 1000 ML INJ 1,000 ML IV SCH (15:40)
[2017-01-11] MEDS ORDERED: ALUMINUM/MAGNESIUM/SIMETH 30 ML CUP PO ONE (15:45)
[2017-01-11] MEDS ORDERED: MORPHINE SULFATE 4 MG/ML INJ IV PUSH ONE (15:45)
[2017-01-11] MEDS ORDERED: SODIUM CHLORIDE 0.9% FLUSH 10 ML FLUSH IV FLUSH PRN (15:45)
[2017-01-11] MEDS ORDERED: LIDOCAINE VISCOUS 2% SOLN 15 ML UDC PO ONE (15:45)
[2017-01-11] MEDS ORDERED: ONDANSETRON HCL 4 MG/2 ML VIAL IVP ONE (15:45)
[2017-01-11] MEDS ORDERED: PANTOPRAZOLE SODIUM 40 MG VIAL IVP ONE (15:45)
--- NOTE | 2017-01-11 15:54 | PD ---
HPI Chief Complaint: Abdominal Pain Time Seen by Provider: 15:31 Travel History International Travel<30 days: No Contact w/Intl Traveler<30days: No Traveled to known affect area: No History of Present Illness HPI The patient is a 46-year-old male who presents emergency department for epigastric abdominal pain and dark tarry stools. The patient states he developed epigastric pain at approximately 1:30 AM last night. The pain was sharp, constant, burning, and located in the epigastrium. The patient's pain radiates minimally to the back. He then had 5 dark colored stools which she described as "black and tarry ". The patient does have a previous history of peptic ulcer per his report, however, has never been placed on Zantac or Protonix. The patient does take aspirin daily for history of CVA. The patient denies any nausea, vomiting, or lower abdominal pain. Symptoms are moderate, there are no alleviating or exacerbating factors. PFSH Past Medical History Hx Anticoagulant Therapy: No Autoimmune Disease: No Bipolar Disorder: Yes Cancer: No Cardiovascular Problems: Yes (HTN) COPD: Yes Cerebrovascular Accident: Yes (TIA 2016) Diminished Hearing: No Endocrine: No Genitourinary: Yes Hypertension: Yes Immune Disorder: No Musculoskeletal: Yes (CHRONIC LOWER BACK PAIN) Neurologic: Yes Psychiatric: Yes Reproductive: No Respiratory: No Migraines: Yes Past Surgical History Abdominal Surgery: Yes (appendectomy ) Appendectomy: Yes Social History Alcohol Use: No (former "alcoholic") Tobacco Use: Yes (1.5ppd) Substance Use: No (DENIES) Allergies-Medications (Allergen,Severity, Reaction): Coded Allergies: Prednisone (Verified Allergy, Severe, Swelling, 01/11/17) Vioxx (Verified Allergy, Severe, edema, 01/11/17) Codeine (Verified Allergy, Mild, FACE SWELLS, 01/11/17) Reported Meds & Prescriptions Reported Meds & Active Scripts Active Aspirin EC Low Dose (Aspirin) 81 Mg Tabec 81 Mg PO DAILY Lipitor (Atorvastatin Calcium) 10 Mg Tab 10 Mg PO HS Reported Lisinopril 5 Mg Tab 5 Mg PO DAILY Review of Systems Except as stated in HPI: all other systems reviewed are Neg HENT: No: Lightheadedness Cardiovascular: Positive: Diaphoresis, No: Chest Pain or Discomfort Respiratory: No: Shortness of Breath Gastrointestinal: Positive: Abdominal Pain, Changes in Bowel Habits, No: Nausea, Vomiting, Diarrhea Genitourinary: No: Dysuria Musculoskeletal: No: Weakness Neurologic: No: Dizziness Physical Exam Narrative GENERAL: Awake, alert, very pleasant 46-year-old male who appears his stated age and is in no acute respiratory distress. SKIN: Focused skin assessment warm/dry. HEAD: Atraumatic. Normocephalic. EYES: Pupils equal and round. No scleral icterus. No injection or drainage. ENT: No nasal bleeding or discharge. Mucous membranes pink and moist. NECK: Trachea midline. No JVD. CARDIOVASCULAR: Regular rate and rhythm. No murmur appreciated. RESPIRATORY: No accessory muscle use. Clear to auscultation. Breath sounds equal bilaterally. GASTROINTESTINAL: Abdomen soft, epigastric tenderness, no rebound tenderness, guarding, rigidity. Rectal: No gross blood. Guaiac positive. MUSCULOSKELETAL: No obvious deformities. No clubbing. No cyanosis. No edema. NEUROLOGICAL: Awake and alert. No obvious cranial nerve deficits. Motor grossly within normal limits. Normal speech. PSYCHIATRIC: Appropriate mood and affect; insight and judgment normal. Data Data Last Documented VS Vital Signs Date Time Temp Pulse Resp B/P Pulse Ox O2 Delivery O2 Flow Rate FiO2 01/11/17 15:23 98.3 116 16 201/128 99 Orders Complete Blood Count With Diff (01/11/17 15:40) Comprehensive Metabolic Panel (01/11/17 15:40) Lipase (01/11/17 15:40) Prothrombin Time / Inr (Pt) (01/11/17 15:40) Act Partial Throm Time (Ptt) (01/11/17 15:40) Iv Access Insert/Monitor (01/11/17 15:40) Ecg Monitoring (01/11/17 15:40) Oximetry (01/11/17 15:40) Morphine Inj (Morphine Inj) (01/11/17 15:45) Ondansetron Inj (Zofran Inj) (01/11/17 15:45) Pantoprazole Inj (Protonix Inj) (01/11/17 15:45) Sodium Chlor 0.9% 1000 Ml Inj (Ns 1000 M (01/11/17 15:40) Sodium Chloride 0.9% Flush (Ns Flush) (01/11/17 15:45) Chest, Single Ap (01/11/17 15:40) Al-Mag Hy-Si 40-40-4 Mg/Ml Liq (Mag-Al P (01/11/17 15:45) Lidocaine 2% Viscous (Xylocaine 2% Visco (01/11/17 15:45) Labs Laboratory Tests Test 01/11/17 16:15 White Blood Count 7.9 TH/MM3 Red Blood Count 3.71 MIL/MM3 Hemoglobin 12.4 GM/DL Hematocrit 36.9 % Mean Corpuscular Volume 99.5 FL Mean Corpuscular Hemoglobin 33.3 PG Mean Corpuscular Hemoglobin 33.5 % Concent Red Cell Distribution Width 14.1 % Platelet Count 367 TH/MM3 Mean Platelet Volume 7.2 FL Neutrophils (%) (Auto) 71.3 % Lymphocytes (%) (Auto) 21.8 % Monocytes (%) (Auto) 5.7 % Eosinophils (%) (Auto) 0.5 % Basophils (%) (Auto) 0.7 % Neutrophils # (Auto) 5.7 TH/MM3 Lymphocytes # (Auto) 1.7 TH/MM3 Monocytes # (Auto) 0.4 TH/MM3 Eosinophils # (Auto) 0.0 TH/MM3 Basophils # (Auto) 0.1 TH/MM3 CBC Comment DIFF FINAL Differential Comment Prothrombin Time 10.1 SEC Prothromb Time International 0.9 RATIO Ratio Activated Partial 24.7 SEC Thromboplast Time Sodium Level 143 MEQ/L Potassium Level 3.7 MEQ/L Chloride Level 108 MEQ/L Carbon Dioxide Level 28.1 MEQ/L Anion Gap 7 MEQ/L Blood Urea Nitrogen 27 MG/DL Creatinine 0.95 MG/DL Estimat Glomerular Filtration 86 ML/MIN Rate Random Glucose 101 MG/DL Calcium Level 8.7 MG/DL Total Bilirubin 0.2 MG/DL Aspartate Amino Transf 14 U/L (AST/SGOT) Alanine Aminotransferase 30 U/L (ALT/SGPT) Alkaline Phosphatase 48 U/L Total Protein 7.1 GM/DL Albumin 3.9 GM/DL Lipase 222 U/L MDM Medical Decision Making Medical Screen Exam Complete: Yes Emergency Medical Condition: Yes Medical Record Reviewed: Yes Interpretation(s) Laboratory Tests Test 01/11/17 16:15 White Blood Count 7.9 TH/MM3 Red Blood Count 3.71 MIL/MM3 Hemoglobin 12.4 GM/DL Hematocrit 36.9 % Mean Corpuscular Volume 99.5 FL Mean Corpuscular Hemoglobin 33.3 PG Mean Corpuscular Hemoglobin 33.5 % Concent Red Cell Distribution Width 14.1 % Platelet Count 367 TH/MM3 Mean Platelet Volume 7.2 FL Neutrophils (%) (Auto) 71.3 % Lymphocytes (%) (Auto) 21.8 % Monocytes (%) (Auto) 5.7 % Eosinophils (%) (Auto) 0.5 % Basophils (%) (Auto) 0.7 % Neutrophils # (Auto) 5.7 TH/MM3 Lymphocytes # (Auto) 1.7 TH/MM3 Monocytes # (Auto) 0.4 TH/MM3 Eosinophils # (Auto) 0.0 TH/MM3 Basophils # (Auto) 0.1 TH/MM3 CBC Comment DIFF FINAL Differential Comment Prothrombin Time 10.1 SEC Prothromb Time International 0.9 RATIO Ratio Activated Partial 24.7 SEC Thromboplast Time Sodium Level 143 MEQ/L Potassium Level 3.7 MEQ/L Chloride Level 108 MEQ/L Carbon Dioxide Level 28.1 MEQ/L Anion Gap 7 MEQ/L Blood Urea Nitrogen 27 MG/DL Creatinine 0.95 MG/DL Estimat Glomerular Filtration 86 ML/MIN Rate Random Glucose 101 MG/DL Calcium Level 8.7 MG/DL Total Bilirubin 0.2 MG/DL Aspartate Amino Transf 14 U/L (AST/SGOT) Alanine Aminotransferase 30 U/L (ALT/SGPT) Alkaline Phosphatase 48 U/L Total Protein 7.1 GM/DL Albumin 3.9 GM/DL Lipase 222 U/L Last Impressions Chest X-Ray 01/11/17 1540 Signed Impressions: Service Date/Time: Wednesday, January 11, 2017 15:52 - CONCLUSION: No acute disease. Bacilio Quiroga MD Differential Diagnosis Differential diagnosis includes peptic ulcer disease, gastric ulcer, duodenal ulcer, gastritis, upper GI bleed, anemia, lower GI bleed, diverticulosis. Narrative Course IV was established, labs are drawn and sent, and the patient was placed on cardiac telemetry monitoring and continuous pulse oximetry monitoring. The patient was administered GI cocktail, Protonix, morphine, Zofran, and IV fluids. The patient's hemoglobin is 12.4, previous 1 was 13.6. LFTs and lipase are unremarkable. The patient may have gastritis versus peptic ulcer disease, will be placed on Protonix. He is advised to return if symptoms worsen or progress and the follow-up with gastroenterology on an outpatient basis. The patient agrees and understands. HemaPrompt Point of Care Internal Pos. & Neg. Controls: Passed Fecal Specimen Occult Blood: Positive Diagnosis Primary Impression: Epigastric pain Patient Instructions: General Instructions Additional Instructions: Protonix as directed. Follow-up with gastroenterology, he may benefit from endoscopy. Return if symptoms worsen or progress. Please provide the patient a copy of his labs at discharge. Med/Other Pt SpecificInfo: Prescription(s) given Scripts Pantoprazole (Protonix)40 Mg Tab40 Mg PO DAILY #30 TAB Ref 1 Prov:Preet Gunter MD 01/11/17 Disposition: 01 DISCHARGE HOME Condition: Stable Preet Gunter MD January 11, 2017 15:54
[2017-01-11 16:00] VITALS: BP 188/100; PULSE 97; RESP 16; O2SAT 99
[2017-01-11 16:15] VITALS: RESP 16; O2SAT 98
[2017-01-11 16:24] LABS: AUTOMATED NEUTROPHIL # 5.7 TH/MM3 (1.8-7.7); BASOPHIL # 0.1 TH/MM3 (0-0.2); BASOPHIL % 0.7 % (0.0-2.0); EOSINOPHIL % 0.5 % (0.0-4.0); HEMATOCRIT 36.9 % (39.0-51.0); HEMO FLAGS DIFF FINAL; LYMPH % 21.8 % (9.0-44.0); LYMPHOCYTE # 1.7 TH/MM3 (1.0-4.8); MEAN CELL VOLUME 99.5 FL (80.0-100.0); MEAN CORPUSCULAR HEMOGLOBIN 33.3 PG (27.0-34.0); MEAN CORPUSCULAR HGB CONC 33.5 % (32.0-36.0); MONO % 5.7 % (0.0-8.0); NEUT % 71.3 % (16.0-70.0); PLATELET COUNT 367 TH/MM3 (150-450); RED BLOOD COUNT 3.71 MIL/MM3 (4.50-5.90); RED CELL DISTRIBUTION WIDTH 14.1 % (11.6-17.2); WHITE BLOOD COUNT 7.9 TH/MM3 (4.0-11.0)
--- NOTE | 2017-01-11 16:24 | RADHPO ---
EXAM DATE/TIME: 01/11/2017 15:52 [facility] COMPARISON: No previous studies available for comparison. INDICATIONS : Chest and abdominal pain. MEDICAL HISTORY : Hypertension. Chronic bronchitis SURGICAL HISTORY : Coronary artery stent. Appendectomy. ENCOUNTER: Initial ACUITY: 1 day PAIN SCORE: 7/10 LOCATION: Bilateral chest FINDINGS: A single view of the chest demonstrates the lungs to be symmetrically aerated without evidence of mas s, infiltrate or effusion. The cardiomediastinal contours are unremarkable. Osseous structures are intact. CONCLUSION: No acute disease. Bacilio Quiroga MD on January 11, 2017 at 16:22 Board Certified Radiologist. This report was verified electronically.
[2017-01-11 16:32] LABS: CHLORIDE 108 MEQ/L (98-107); POTASSIUM 3.7 MEQ/L (3.5-5.1); SODIUM (NA) 143 MEQ/L (136-145)
[2017-01-11 16:36] LABS: ANION GAP 7 MEQ/L (5-15); BICARBONATE 28.1 MEQ/L (21.0-32.0); BLOOD UREA NITROGEN 27 MG/DL (7-18)
[2017-01-11 16:37] LABS: APTT (PATIENT) 24.7 SEC (24.3-30.1); INTERNATIONAL NORMALIZED RATIO 0.9 RATIO; PROTHROMBIN TIME - PATIENT 10.1 SEC (9.8-11.6)
[2017-01-11 16:39] LABS: ALT (GPT) 30 U/L (12-78); AST (GOT) 14 U/L (15-37); GLOMERULAR FILTRATION RATE 86 ML/MIN (>89)
[2017-01-11 16:40] LABS: TOTAL BILIRUBIN ADULT 0.2 MG/DL (0.2-1.0)
[2017-01-11 16:41] LABS: ALKALINE PHOSPHATASE 48 U/L (45-117)
[2017-01-11] MEDS ORDERED: PROT40TA PO (17:03)
[2017-01-11 17:15] VITALS: BP 180/92; PULSE 88; RESP 16; O2SAT 98
[2017-01-11 17:20] VITALS: RESP 16
[2017-01-11 17:56] VITALS: BP 179/84
== END 2017-01-11 17:58 | disposition home or self-care (01) ==
LOC: PHED 15:18
DX: R10.13 Epigastric pain (principal); R61 Generalized hyperhidrosis; F31.9 Bipolar disorder, unspecified; I10 Essential (primary) hypertension; J44.9 Chronic obstructive pulmonary disease, unspecified; Z86.73 Personal history of transient ischemic attack (TIA), and cerebral infarction without residual deficits; Z79.82 Long term (current) use of aspirin; Z79.899 Other long term (current) drug therapy
CPT/HCPCS: 71010; 80053; 83690; 85025; 85610; 85730; 96361; 96374; 96375; 99284; C9113; J2270; J2405; J7030

== ENCOUNTER 2017-07-14 20:08 | Emergency (ER) | payer SELFPAY ==
[~2017-07-14] VITALS: Ht 170.2 cm; Wt 81.0 kg
[~2017-07-14 20:08] MED LIST changes: -ASPI81TA2 PO; +ASPI81TA22 PO; +PROT40TA PO
[2017-07-14 20:11] VITALS: BP 207/107; PULSE 118; RESP 18; TEMP 98.6; O2SAT 99
[2017-07-14] MEDS ORDERED: LIDO1SOL8 SWISH-SWAL (20:16)
[2017-07-14] MEDS ORDERED: AMOX500T PO (20:16)
--- NOTE | 2017-07-14 20:18 | PD ---
HPI Chief Complaint: Allergic/Adverse Reaction Time Seen by Provider: 20:14 Travel History International Travel<30 days: No Contact w/Intl Traveler<30days: No Traveled to known affect area: No History of Present Illness HPI C/O SORE THROAT, WORSE BY SWALLOWING OR EATING, LEFT SIDED, NO IMPROVING FACTORS.... PFSH Past Medical History Hx Anticoagulant Therapy: No Autoimmune Disease: No Bipolar Disorder: Yes Depression: Yes Cancer: No Cardiac Catheterization: Yes Cardiovascular Problems: Yes (HTN) Chest Pain: Yes COPD: Yes Cerebrovascular Accident: Yes (TIA 2016) Diminished Hearing: No Endocrine: No Gastrointestinal Disorders: No GERD: Yes Genitourinary: Yes Headaches: Yes Hypertension: Yes Immune Disorder: No Musculoskeletal: Yes (CHRONIC LOWER BACK PAIN) Neurologic: Yes Psychiatric: Yes Reproductive: No Respiratory: No Migraines: Yes Past Surgical History Abdominal Surgery: Yes (appendectomy ) Appendectomy: Yes Oral Surgery: Yes (wisdom teeth) Other Surgery: Yes (left foot bunion removal) Social History Alcohol Use: No (former "alcoholic") Tobacco Use: Yes (1.5ppd) Substance Use: No (DENIES) Allergies-Medications (Allergen,Severity, Reaction): Coded Allergies: prednisone (Unverified Allergy, Severe, Swelling, 07/14/17) rofecoxib (Unverified Allergy, Severe, edema, 07/14/17) codeine (Unverified Allergy, Mild, FACE SWELLS, 07/14/17) Reported Meds & Prescriptions Reported Meds & Active Scripts Active Lidocaine Viscous Liq 2 % Liqd 5 Ml SWISH-SWAL DIRECTED PRN Amoxicillin 500 Mg Tab 500 Mg PO BID 7 Days Aspirin EC Low Dose (Aspirin) 81 Mg Tabec 81 Mg PO DAILY Lipitor (Atorvastatin Calcium) 10 Mg Tab 10 Mg PO HS Reported Lisinopril 5 Mg Tab 5 Mg PO DAILY Review of Systems Except as stated in HPI: all other systems reviewed are Neg General / Constitutional: No: Fever Eyes: No: Visual changes HENT: Positive: Sore Throat Cardiovascular: No: Chest Pain or Discomfort Respiratory: No: Shortness of Breath Gastrointestinal: No: Abdominal Pain Genitourinary: No: Dysuria Musculoskeletal: No: Pain Skin: No Rash Neurologic: No: Weakness Psychiatric: No: Depression Endocrine: No: Polydipsia Hematologic/Lymphatic: No: Easy Bruising Physical Exam Narrative GENERAL: SKIN: Warm and dry. HEAD: Atraumatic. Normocephalic. EYES: Pupils equal and round. No scleral icterus. No injection or drainage. ENT: No nasal bleeding or discharge. Mucous membranes pink and moist....LEFT SIDED OROPHARYNGEAL ERYTHEMA, WITH EXUDATES, ALSO SMALL ANTERIOR CERVICAL LAD NOTED WELL, NO UVULAR DEVIATION, NO STRIDOR, TOLERATING ORAL SECRETIONS NECK: Trachea midline. No JVD. CARDIOVASCULAR: Regular rate and rhythm. RESPIRATORY: No accessory muscle use. Clear to auscultation. Breath sounds equal bilaterally. GASTROINTESTINAL: Abdomen soft, non-tender, nondistended. Hepatic and splenic margins not palpable. MUSCULOSKELETAL: Extremities without clubbing, cyanosis, or edema. No obvious deformities. NEUROLOGICAL: Awake and alert. No obvious cranial nerve deficits. Motor grossly within normal limits. Five out of 5 muscle strength in the arms and legs. Normal speech. PSYCHIATRIC: Appropriate mood and affect; insight and judgment normal. Data Data Last Documented VS Vital Signs Date Time Temp Pulse Resp B/P (MAP) Pulse Ox O2 Delivery O2 Flow Rate FiO2 07/14/17 20:14 Room Air 07/14/17 20:11 98.6 118 18 207/107 (140) 99 Orders Orders Ed Discharge Order (07/14/17 20:19) MDM Medical Decision Making Medical Screen Exam Complete: Yes Emergency Medical Condition: Yes Medical Record Reviewed: Yes Differential Diagnosis PHARYNGITIS V TONSILLITIS Narrative Course AFTER EXAMINATION IS ONLY LIMITED TO PHARYNGITIS ONLY, WITHOUT TONSIL INVOLVEMENT AND NO PERITONSILLAR ABSCESS Diagnosis Primary Impression: Pharyngitis Qualified Codes: J02.9 - Acute pharyngitis, unspecified Patient Instructions: General Instructions, Pharyngitis (GEN) Scripts Lidocaine Viscous Liq (Lidocaine Viscous Liq) 2 % Liqd 5 ML SWISH-SWAL DIRECTED Y for PAIN, #1 BOTTLE 0 Refills Prov: Santhosh Kumari MD 07/14/17 Amoxicillin (Amoxicillin) 500 Mg Tab 500 MG PO BID for Infection for 7 Days, #14 TAB 0 Refills Prov: Santhosh Kumari MD 07/14/17 Disposition: 01 DISCHARGE HOME Condition: Stable Santhosh Kumari MD Jul 14, 2017 20:18
== END 2017-07-14 20:32 | disposition home or self-care (01) ==
LOC: PHED 20:08
DX: J02.9 Acute pharyngitis, unspecified (principal); F17.200 Nicotine dependence, unspecified, uncomplicated
CPT/HCPCS: 99284